=== PATIENT | female | born 1940 | race Caucasian/White ===

== ENCOUNTER 2016-05-07 10:57 | Emergency (ER) | payer OTHER ==
[2016-05-07 11:04] VITALS: BP 161/56; PULSE 81; TEMP 99; BMI 23.2
--- NOTE | 2016-05-07 11:25 | PDOC ---
History of Present Illness - General Chief Complaint: Colic Stated Complaint: GAS Time Seen by Provider: 05/07/16 11:07 History Source: Patient Exam Limitations: No Limitations - History of Present Illness Initial Comments: 76 yo F hsitory HTN, enlarged heart, diverticulitis presents with gas. She states that she has been feeling gassy, and saw Dr. Monzon for her symptoms. In light of her history, she was placed on abx, but with each antibiotic she developed loose stools. She denies diarrhea, abdominal pain, fever, vomiting. She was sent by PMD as she has developed hypokalemia with diarrhea in the past. Past History - Past Medical History Allergies/Adverse Reactions: Allergies Allergy/AdvReac Type Severity Reaction Status Date / Time levofloxacin [From Levaquin] Allergy Verified 05/07/16 11:00 acetaminophen [From Percocet] AdvReac Intermediate Nausea Verified 05/07/16 11: 00 aspirin AdvReac Intermediate Nausea Verified 05/07/16 11:00 ciprofloxacin [From Cipro] AdvReac Intermediate Nausea Verified 05/07/16 11:00 ciprofloxacin HCl AdvReac Intermediate Nausea Verified 05/07/16 11:00 [From Cipro] oxycodone HCl [From Percocet] AdvReac Intermediate Nausea Verified 05/07/16 11: 00 Home Medications: Ambulatory Orders Alprazolam 0.25 mg PO BID 05/07/16 Amox-Tr/K Cl [Augmentin - 875Mg Tablet] 1 tab PO BID #20 tablet 05/07/16 Anastrozole [Arimidex -] 1 mg PO DAILY 05/07/16 Carvedilol [Coreg -] 6.25 mg PO HS 05/07/16 Furosemide [Lasix -] 20 mg PO DAILY 05/07/16 Pantoprazole Sodium [Protonix -] 40 mg PO DAILY 05/07/16 Potassium Chloride 10 meq PO DAILY 05/07/16 Anemia: Yes (SLIGHTLY) Asthma: No Cancer: Yes (LEFT BREAST) Cardiac Disorders: Yes (SLIGHTLY ENLARGED HEART) CVA: No COPD: No CHF: No Dementia: No Diabetes: No GI Disorders: Yes (EPISODE DIVERTICULITIS FEB 2013) Disorders: No HTN: Yes Hypercholesterolemia: No Liver Disease: No Suicide Attempt (Hx): No Seizures: No Thyroid Disease: No - Surgical History Abdominal Surgery: No Appendectomy: No Cardiac Surgery: No Cholecystectomy: No Lung Surgery: No Neurologic Surgery: No Orthopedic Surgery: No - Immunization History Immunization Up to Date: Yes - Psycho/Social/Smoking Cessation Hx Anxiety: No Suicidal Ideation: No Smoking Status: No Smoking History: Never smoked Have you smoked in the past 12 months: No Number of Cigarettes Smoked Daily: 0 Hx Alcohol Use: No Drug/Substance Use Hx: No Substance Use Type: None Hx Substance Use Treatment: No Review of Systems - Review of Systems Able to Perform ROS?: Yes Comments:: GENERAL/CONSTITUTIONAL: No fever or chills. No weakness. HEAD, EYES, EARS, NOSE AND THROAT: No change in vision. No ear pain or discharge. No sore throat. CARDIOVASCULAR: No chest pain or shortness of breath. RESPIRATORY: No cough, wheezing, or hemoptysis. GASTROINTESTINAL: No nausea, vomiting, diarrhea or constipation. GENITOURINARY: No dysuria, frequency, or change in urination. MUSCULOSKELETAL: No joint or muscle swelling or pain. No neck or back pain. SKIN: No rash NEUROLOGIC: No headache, vertigo, loss of consciousness, or change in strength/ sensation. ENDOCRINE: No increased thirst. No abnormal weight change. HEMATOLOGIC/LYMPHATIC: No anemia, easy bleeding, or history of blood clots. ALLERGIC/IMMUNOLOGIC: No hives or skin allergy. *Physical Exam - Vital Signs Last Vital Signs Temp Pulse Resp BP Pulse Ox 99 F 81 16 161/56 100 05/07/16 11:00 05/07/16 11:00 05/07/16 11:00 05/07/16 11:00 05/07/16 11:00 - Physical Exam Comments: GENERAL: Awake, alert, and fully oriented, in no acute distress HEAD: No signs of trauma EYES: PERRLA, EOMI, sclera anicteric, conjunctiva clear ENT: Auricles normal inspection, hearing grossly normal, nares patent, oropharynx clear without exudates. Moist mucosa NECK: Normal ROM, supple, no lymphadenopathy, JVD, or masses LUNGS: Breath sounds equal, clear to auscultation bilaterally. No wheezes, and no crackles HEART: Regular rate and rhythm, normal S1 and S2, no murmurs, rubs or gallops ABDOMEN: Soft, nontender, normoactive bowel sounds. No guarding, no rebound. No masses EXTREMITIES: Normal range of motion, no edema. No clubbing or cyanosis. No cords, erythema, or tenderness NEUROLOGICAL: Cranial nerves II through XII grossly intact. Normal speech. Uses walker for assistance. SKIN: Warm, Dry, normal turgor, no rashes or lesions noted. ED Treatment Course - LABORATORY CBC & Chemistry Diagram: 05/07/16 11:32 05/07/16 11:32 Medical Decision Making - Medical Decision Making 05/07/16 12:21 D/w Dr. Monzon, reviewed labs and exam findings. She has elevated WBC and her electrolytes are wnl. In light of the elevated WBC, would obtain CT to r/o diverticulitis. We discussed that she may be minimizing her symptoms, but she has prior history of diverticulitis. Will obtain CT, and if negative, will DC home. 05/07/16 14:09 CT results d/w patient. Will start on augmentin outpatient, as she is tolerating PO and well-appearing with no pain, f/u with PMD. *DC/Admit/Observation/Transfer Diagnosis at time of Disposition: Colitis - Discharge Dispostion Disposition: HOME Condition at time of disposition: Stable Admit: No - Prescriptions Prescriptions: Amox-Tr/K Cl [Augmentin - 875Mg Tablet] 1 tab PO BID #20 tablet - Referrals Referrals: Kevin Monzon MD [Primary Care Provider] - - Patient Instructions Printed Discharge Instructions: DI for Colitis
[2016-05-07 11:47] LABS: BASOPHIL 0.3 % (0-2.0); EOSINOPHIL 0.9 % (0-4.5); MCH 24.2 pg (25.7-33.7); MCHC 32.2 g/dl (32.0-36.0); MEAN CELL VOLUME 75.2 fl (80-96); MEAN PLT VOLUME 7.6 fl (7.5-11.1); NEUTROPHILS 80.5 % (42.8-82.8); PLATELET COUNT 371 K/MM3 (134-434); RDW 14.7 % (11.6-15.6); WHITE BLOOD COUNT 13.6 K/mm3 (4.0-10.0)
[2016-05-07 12:06] LABS: ALBUMIN 2.9 g/dl (3.5-5.0); ALK PHOS 79 U/L (32-92); ANION GAP 10 (8-16); BILIRUBIN,TOTAL 0.5 mg/dl (0.2-1.0); CALCIUM 8.4 mg/dl (8.4-10.2); CO2 24 mmol/L (22-28); CREATININE 0.9 mg/dl (0.6-1.3); GLUCOSE,RANDOM 99 mg/dl (74-106); SGOT/AST 15 U/L (10-42); SGPT/ALT 12 U/L (10-40); TOT PROT 6.8 g/dl (6.4-8.3)
== END 2016-05-07 14:15 | disposition home or self-care (01) ==
LOC: FER 10:57
DX: K52.9 Noninfective gastroenteritis and colitis, unspecified (principal); I51.7 Cardiomegaly; Z85.3 Personal history of malignant neoplasm of breast; I10 Essential (primary) hypertension
CPT/HCPCS: 36415; 74177-TC; 80053; 85025; 99282-25

== ENCOUNTER 2016-10-01 11:02 | Emergency (ER) | payer OTHER ==
[2016-10-01 11:32] VITALS: BP 122/49; PULSE 67; TEMP 99.4; BMI 22.2
--- NOTE | 2016-10-01 11:58 | PDOC ---
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 This supplement is apparently a plant enzyme. When she request to discontinue the medication, her physician and welder [employer] encourage her to continue. When she does not take the medication, she has no gas or bloating. Review of systems: She denies campos abdominal pain, nausea, vomiting, diarrhea, constipation, melena, or bloody stool. Her stools are "pasty" and light brown. No chest pain, shortness of breath, visual or focal neurologic symptoms Past medical history: CHF, GERD, hypokalemia, breast cancer in remission, colitis in remission Medications: Coreg, furosemide, potassium chloride, Protonix, Demadex, Cymbalta , and "Plantizyme" Social history: Patient lives independently and takes care of a 45-year-old son who has had mental retardation since and multiple CVAs. She has some home assistance. No tobacco alcohol or nonprescription drugs. She ambulates with a walker. She gets around adequately. Family history reviewed and noncontributory to this illness Physical exam: Alert and oriented, well-developed well-nourished, no acute distress, cheerful and cooperative, appears to be in no pain Afebrile, vital signs normal No pallor or icterus. PERRLA, fundi benign, ENT clear Mucous membranes moist and good skin turgor Neck supple without bruit mass or nodes Chest clear to P&A, full breath sounds CV regular without murmur rub or gallop pulses full and symmetric no JVD or edema Abdomen mildly distended, but bowel sounds normal. No masses tenderness organomegaly. No CVAT Rectal exam with multiple noninflamed external hemorrhoids, no other masses or tenderness, stool light brown and guaiac-negative Extremities no CCE Neurological C2 to 12 intact. No focal sensory or motor deficits. Gait stable with her walker Impression: There is no sign of an acute abdomen, flareup of colitis, or other significant abdominal disease. Her gas and bloating are most likely due to her diet supplement, which is composed supplant enzymes, and which is reproducible by taking the medication, resolving when she withholds it. Plan: CBC and chemistries, stool guaiac, and further medical management depending on results. Past History - Past Medical History Allergies/Adverse Reactions: Allergies Allergy/AdvReac Type Severity Reaction Status Date / Time levofloxacin [From Levaquin] Allergy Verified 10/01/16 11:04 acetaminophen [From Percocet] AdvReac Intermediate Nausea Verified 10/01/16 11: 04 aspirin AdvReac Intermediate Nausea Verified 10/01/16 11:04 ciprofloxacin [From Cipro] AdvReac Intermediate Nausea Verified 10/01/16 11:04 ciprofloxacin HCl AdvReac Intermediate Nausea Verified 10/01/16 11:04 [From Cipro] oxycodone HCl [From Percocet] AdvReac Intermediate Nausea Verified 10/01/16 11: 04 Home Medications: Ambulatory Orders Alprazolam 0.25 mg PO BID 05/07/16 Amox-Tr/K Cl [Augmentin - 875Mg Tablet] 1 tab PO BID #20 tablet 05/07/16 Anastrozole [Arimidex -] 1 mg PO DAILY 05/07/16 Carvedilol [Coreg -] 6.25 mg PO HS 05/07/16 Furosemide [Lasix -] 10 mg PO DAILY 05/07/16 Pantoprazole Sodium [Protonix -] 40 mg PO DAILY 05/07/16 Potassium Chloride 10 meq PO DAILY 05/07/16 Duloxetine HCl [Cymbalta] 20 mg PO DAILY 10/01/16 Plantizyme 1 tab PO DAILY 10/01/16 Anemia: Yes (SLIGHTLY) Asthma: No Cancer: Yes (LEFT BREAST) Cardiac Disorders: Yes (SLIGHTLY ENLARGED HEART) CVA: No COPD: No CHF: No Dementia: No Diabetes: No GI Disorders: Yes (EPISODE DIVERTICULITIS FEB 2013) Disorders: No HTN: Yes Hypercholesterolemia: No Liver Disease: No Suicide Attempt (Hx): No Seizures: No Thyroid Disease: No - Surgical History Abdominal Surgery: No Appendectomy: No Cardiac Surgery: No Cholecystectomy: No Lung Surgery: No Neurologic Surgery: No Orthopedic Surgery: No - Immunization History Immunization Up to Date: Yes - Psycho/Social/Smoking Cessation Hx Anxiety: No Suicidal Ideation: No Smoking Status: No Smoking History: Never smoked Have you smoked in the past 12 months: No Number of Cigarettes Smoked Daily: 0 Information on smoking cessation initiated: No Hx Alcohol Use: No Drug/Substance Use Hx: No Substance Use Type: None Hx Substance Use Treatment: No *Physical Exam - Vital Signs Last Vital Signs Temp Pulse Resp BP Pulse Ox 99.4 F 67 20 122/49 95 10/01/16 11:04 10/01/16 11:04 10/01/16 11:04 10/01/16 11:04 10/01/16 11:04 ED Treatment Course - LABORATORY CBC & Chemistry Diagram: 10/01/16 11:57 10/01/16 11:57 *DC/Admit/Observation/Transfer Diagnosis at time of Disposition: Gastrointestinal dysmotility - Discharge Dispostion Disposition: HOME Condition at time of disposition: Stable Admit: No - Referrals Referrals: Pan Darden MD [Staff Physician] - 1 week - Patient Instructions Printed Discharge Instructions: How to Avoid Gas, Intestinal Gas (Alternative Therapy) Additional Instructions: Discontinue Plantizyme If symptoms persist, see electrician constructor supervisor for further evaluation and treatment Return to ER if you develop abdominal pain, vomiting, diarrhea.
[2016-10-01 12:57] LABS: MCH 24.7 pg (25.7-33.7); MCHC 33.3 g/dl (32.0-36.0); MEAN PLT VOLUME 8.7 fl (7.5-11.1); PLATELET COUNT 382 K/MM3 (134-434); RDW 16.4 % (11.6-15.6); WHITE BLOOD COUNT 12.6 K/mm3 (4.0-10.8)
[2016-10-01 13:04] LABS: ALBUMIN 3.2 g/dl (3.5-5.0); ALK PHOS 86 U/L (32-92); ANION GAP 5 (8-16); BILIRUBIN,TOTAL 0.9 mg/dl (0.2-1.0); CALCIUM 8.5 mg/dl (8.4-10.2); CO2 27 mmol/L (22-28); CREATININE 0.8 mg/dl (0.6-1.3); GLUCOSE,RANDOM 109 mg/dl (74-106); SGOT/AST 15 U/L (10-42); SGPT/ALT 10 U/L (10-40); TOT PROT 7.2 g/dl (6.4-8.3)
[2016-10-01 14:18] LABS: ANISOCYTOSIS 1+; HYPOCHROMIA 2+; MICROCYTOSIS 1+; PLATELET ESTIMATE ADEQUATE (NORMAL)
== END 2016-10-01 15:20 | disposition home or self-care (01) ==
LOC: FER 11:02
DX: K30 Functional dyspepsia (principal); I10 Essential (primary) hypertension; Z85.3 Personal history of malignant neoplasm of breast; I51.9 Heart disease, unspecified
CPT/HCPCS: 36415; 80053; 82272; 85027; 99283-25

== ENCOUNTER 2016-10-30 11:31 | Emergency (ER) | payer OTHER ==
--- NOTE | 2016-10-30 11:48 | PDOC ---
History of Present Illness - General Chief Complaint: Diarrhea Stated Complaint: FEELING DEHYDRATED DIARRHEA Time Seen by Provider: 10/30/16 11:46 - History of Present Illness Initial Comments: 10/30/16 13:51 Chief complaint: Dry mouth History of present illness: Patient complains of a dry mouth for several days after increasing her antidepressant medication. Her primary physician center to the ER for evaluation of dehydration and depression. She has been taking care of a 50-year-old son who is incapacitated with a brain injury and he feels she is becoming more depressed because of the stress. Review of systems: The patient denies depression, or excessive stress due to the care of her son. She is adamant about wanting to take care of him at home and that she does not feel excessive stress from because of it. 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 She is sleeping well. She is eating adequately. She has no suicidal or homicidal ideations. There is no chest pain, shortness of breath, abdominal pain, nausea, vomiting, diarrhea, visual or focal neurologic symptoms. Ambulation is limited due to a prior back injury. She does not feel comfortable walking long distances outside the house due to this injury, but she feels no real desire to undertake outside activities. She has a good friend who visits her and she is content spending time with her son Past medical history: Chronic back pain, hypertension, depression, anxiety Family/social history reviewed and as noted above, otherwise noncontributory as noted above Physical exam: Alert and oriented well-developed well-nourished no acute distress cheerful and cooperative. Affect is normal and she does not appear acutely depressed or anxious Afebrile, vital signs normal including low normal blood pressure. PERRLA, fundi benign, ENT clear Neck supple without bruit mass or nodes Chest clear CV regular without murmur rub or gallop Abdomen benign Skin clear, no rash, adequate turgor and wet mucous membranes Neurological C2 to 12 intact. Generalized weakness but no focal sensory or motor deficits. Ambulates adequately with the assistance of a walker due to chronic back pain Impression: Low normal blood pressure and diuretic therapy could be contributing to generalized weakness and fatigue. No sign of significant depression. No sign of dehydration. Trimox may be a result of antidepressant side effect Plan: Discontinue diuretic. Monitor blood pressure. Discuss with primary physician. Past History - Past Medical History Allergies/Adverse Reactions: Allergies Allergy/AdvReac Type Severity Reaction Status Date / Time levofloxacin [From Levaquin] Allergy Verified 10/30/16 11:47 acetaminophen [From Percocet] AdvReac Intermediate Nausea Verified 10/30/16 11: 46 aspirin AdvReac Intermediate Nausea Verified 10/30/16 11:46 ciprofloxacin [From Cipro] AdvReac Intermediate Nausea Verified 10/30/16 11:47 ciprofloxacin HCl AdvReac Intermediate Nausea Verified 10/30/16 11:47 [From Cipro] oxycodone HCl [From Percocet] AdvReac Intermediate Nausea Verified 10/30/16 11: 47 Home Medications: Ambulatory Orders Anastrozole [Arimidex -] 1 mg PO DAILY 05/07/16 Carvedilol [Coreg -] 6.25 mg PO BID 05/07/16 Furosemide [Lasix -] 10 mg PO Q2D 05/07/16 Pantoprazole Sodium [Protonix -] 40 mg PO DAILY 05/07/16 Potassium Chloride 10 meq PO DAILY 05/07/16 Duloxetine HCl [Cymbalta] 20 mg PO BID 10/01/16 Anemia: Yes (SLIGHTLY) Asthma: No Cancer: Yes (LEFT BREAST) Cardiac Disorders: Yes (SLIGHTLY ENLARGED HEART) CVA: No COPD: No CHF: No Dementia: No Diabetes: No GI Disorders: Yes (EPISODE DIVERTICULITIS FEB 2013) Disorders: No HTN: Yes Hypercholesterolemia: No Liver Disease: No Suicide Attempt (Hx): No Seizures: No Thyroid Disease: No - Surgical History Abdominal Surgery: No Appendectomy: No Cardiac Surgery: No Cholecystectomy: No Lung Surgery: No Neurologic Surgery: No Orthopedic Surgery: No - Immunization History Immunization Up to Date: Yes - Psycho/Social/Smoking Cessation Hx Anxiety: No Suicidal Ideation: No Smoking Status: No Smoking History: Never smoked Have you smoked in the past 12 months: No Number of Cigarettes Smoked Daily: 0 Hx Alcohol Use: No Drug/Substance Use Hx: No Substance Use Type: None Hx Substance Use Treatment: No ED Treatment Course - LABORATORY CBC & Chemistry Diagram: 10/30/16 12:40 10/30/16 12:40 Medical Decision Making - Medical Decision Making 10/30/16 14:53 Labs with no significant abnormalities. It does not appear that the patient needs diuretic therapy at present, and she was told to stop her diuretic and consult with her primary physician, monitoring her blood pressure. Spoke with primary physician. Will follow as an outpatient. Fully ambulatory and in no distress upon discharge. No significant depression was evident. 10/30/16 14:54 *DC/Admit/Observation/Transfer Diagnosis at time of Disposition: Dehydration - Discharge Dispostion Disposition: HOME Condition at time of disposition: Improved Admit: No - Patient Instructions Additional Instructions: Your blood pressure is in the low range of normal. You might not need diuretic therapy any longer. Stop your diuretic and discuss this with your primary physician. Be sure to monitor your blood pressure closely thereafter. Diuretics may result in dehydration. Antidepressant medication may cause a dry mouth and aggravated her symptoms. You can keep your mouth moist by using glycerin swabs or sucking on hard sugar-free candies. Discuss these measures as well with your primary physician.
[2016-10-30 12:06] VITALS: BMI 20.2
[2016-10-30] MEDS ORDERED: SODIUM CHLORIDE 250 ML IV STA (13:15)
[2016-10-30 13:19] LABS: ALBUMIN 2.6 g/dl (3.5-5.0); ALK PHOS 98 U/L (32-92); ANION GAP 10 (8-16); BILIRUBIN,TOTAL 0.8 mg/dl (0.2-1.0); CALCIUM 8.5 mg/dl (8.4-10.2); CO2 25 mmol/L (22-28); CPK 27 IU/L (26-192); GLUCOSE,RANDOM 105 mg/dl (74-106); SGOT/AST 16 U/L (10-42); SGPT/ALT 14 U/L (10-40); TOT PROT 7.2 g/dl (6.4-8.3)
[2016-10-30 13:47] LABS: BASOPHIL 0.3 % (0-2.0); MEAN PLT VOLUME 8.3 fl (7.5-11.1)
[2016-10-30 13:50] LABS: EOSINOPHIL 1.1 % (0-4.5); MCH 23.1 pg (25.7-33.7); MCHC 31.4 g/dl (32.0-36.0); MEAN CELL VOLUME 73.3 fl (80-96); NEUTROPHILS 73.4 % (42.8-82.8); PLATELET COUNT 417 K/MM3 (134-434); RDW 19.2 % (11.6-15.6)
[2016-10-30 15:22] VITALS: BP 132/52; PULSE 64; TEMP 97.6
[2016-10-30 16:07] LABS: TROPONIN I (DFP) < 0.03 ng/ml (0.03-0.50)
--- NOTE | 2016-10-31 16:27 | EKG ---
Test Reason : Blood Pressure : / mmHG Vent. Rate : 067 BPM Atrial Rate : 067 BPM P-R Int : 148 ms QRS Dur : 084 ms QT Int : 398 ms P-R-T Axes : 063 045 018 degrees QTc Int : 420 ms NORMAL SINUS RHYTHM NORMAL ECG NO PREVIOUS ECGS AVAILABLE Confirmed by ROXANA URIARTE MD ([id number] on 10/31/2016 4:27:06 PM Referred By: SARANYA PERSAUD Confirmed By:ROXANA URIARTE MD
== END 2016-10-30 16:33 | disposition home or self-care (01) ==
LOC: FER 11:31
PROC: 3E0337Z Introduction of Electrolytic and Water Balance Substance into Peripheral Vein, Percutaneous Approach (ICD-10-PCS; principal; 2016-10-30)
DX: E86.0 Dehydration (principal); D64.9 Anemia, unspecified; Z85.3 Personal history of malignant neoplasm of breast; I51.9 Heart disease, unspecified; I10 Essential (primary) hypertension
CPT/HCPCS: 36415; 80053; 84484; 85025; 93005; 99283-25